=== PATIENT | female | born 2000 | race American Indian/Alaskan Native ===

== ENCOUNTER 2021-09-03 08:19 | Inpatient (IN) | payer OTHER ==
[2021-09-03] MEDS ORDERED: LACTATED RINGERS 1,000 ML ONE (10:04)
[2021-09-03] MEDS ORDERED: LACTATED RINGERS 1,000 ML IV SCH (12:00)
[2021-09-03] MEDS ORDERED: LIDOCAINE (2%) 20 MG/1 ML VIAL 20 ML MDV INFILTRATI SCH (12:00)
[2021-09-03] MEDS ORDERED: ePHEDrine SULFATE 50 MG/1 ML INJ IV PRN ×2 (12:18→13:00)
--- NOTE | 2021-09-03 12:18 | History and Physical Report ---
History of Present Illness Date of examination: 09/03/21 Date of admission: 09/03/21 Chief complaint: SROM at 38+3 wks gestation. History of present illness: . JANKI 09/14/2021. Past History Past Medical History: no pertinent history - Obstetrical History Expected Date of Delivery: 09/14/21 Actual Gestation: 38 Week(s) 3 Day(s) : 2 Para: 0 Medications and Allergies Allergies Allergy/AdvReac Type Severity Reaction Status Date / Time No Known Allergies Allergy Unverified 09/03/21 11:51 Home Medications Medication Instructions Recorded Confirmed Last Taken Type No Known Home Medications [No 09/03/21 09/03/21 Unknown History Reported Home Medications] Review of Systems All systems: negative Genitourinary: leakage of fluid, contractions - Vital Signs Vital signs: Vital Signs Pulse BP Pulse Ox 75 96/62 99 09/03/21 08:57 09/03/21 08:57 09/03/21 08:57 Temp Pulse Resp BP Pulse Ox 91 H 121/76 99 09/03/21 12:06 09/03/21 11:56 09/03/21 12:06 - Physical Exam Lungs: Positive: Normal air movement Abdomen: Positive: normal appearance, distention Genitourinary (Female): Positive: normal external genitalia, normal perenium Vagina: Positive: normal moisture Cervix: Negative: lesion, discharge Uterus: Positive: enlarged, normal contour Extremities: Positive: normal Deep Tendon Reflex Grade: Normal +2 - Obstetrical FHR: auscultation normal Uterine Contraction Monitor Mode: External Cervical Dilatation: 6 Cervical Effacement Percentage: 100 station: 0+2 Uterine Contraction Pattern: Regular Uterine Contraction Intensity: Strong/Firm Results All other labs normal. Assessment and Plan - Patient Problems (1) 38 weeks gestation of Current Visit: Yes Status: Acute (2) SROM (spontaneous rupture of membranes) Current Visit: Yes Status: Acute (3) Active labor at term Current Visit: Yes Status: Acute Plan to address problem: Vaginal delivery expected.
[2021-09-03] MEDS ORDERED: TERBUTALINE 1 MG/1 ML INJ SUB-Q PRN (12:30)
[2021-09-03] MEDS ORDERED: LOPERAMIDE 2 MG CAP PO PRN (12:30)
[2021-09-03 13:00] LABS: Hematocrit 31.9 % (30.3-42.9); Hemoglobin 10.1 gm/dl (10.1-14.3); Mean Corpuscular HGB Conc 32 % (30-34); Mean Corpuscular Volume 86 fl (79-97); Platelet Count 321 K/mm3 (140-440); Red Blood Count 3.73 M/mm3 (3.65-5.03)
[2021-09-03] MEDS ORDERED: OXYTOCIN 10 UNIT/1 ML INJ IM PRN (13:00)
[2021-09-03] MEDS ORDERED: AMPICILLIN/NS 2 GM/100 ML 2 GM/100 ML BAG IV SCH (13:00)
[2021-09-03] MEDS ORDERED: CARBOPROST TROMETHAMINE 250 MCG/1 ML INJ IM PRN (13:00)
[2021-09-03] MEDS ORDERED: fentaNYL-BUPIV 2 MCG/ML-0.125% 200 MCG/100 ML BAG EPIDURAL SCH (13:00)
[2021-09-03] MEDS ORDERED: NALOXONE 0.4 MG/1 ML INJ IV PRN (13:00)
[2021-09-03] MEDS ORDERED: OXYTOCIN DRIP 30 UNITS/500 ML BAG IV SCH ×2 (13:00→15:00)
[2021-09-03] MEDS ORDERED: MINERAL OIL 30 ML ORAL LIQD PO PRN (13:00)
[2021-09-03] MEDS ORDERED: METHYLERGONOVINE MALEATE 0.2 MG/ML VIAL IM PRN (13:00)
[2021-09-03] MEDS ORDERED: miSOPROStol 200 MCG TAB PR PRN (13:00)
[2021-09-03] MEDS ORDERED: fentaNYL 100 MCG/2 ML INJ IV SCH (13:00)
[2021-09-03] MEDS ORDERED: PROMETHAZINE 25 MG RECT SUPP PR PRN (14:34)
[2021-09-03] MEDS ORDERED: KETOROLAC 30 MG/1 ML INJ IV PRN (14:34)
[2021-09-03] MEDS ORDERED: ONDANSETRON 4 MG/2 ML INJ IV PRN (14:34)
--- NOTE | 2021-09-03 14:43 | Procedure Note ---
OB Delivery Note - Delivery Date of Delivery: 09/03/21 Surgeon: BARON HARVEY Estimated blood loss: 100cc - Vaginal Delivery presentation: vertex Delivery position: OA Intrapartum events: none Delivery induction: none Delivery monitor: external FHT, external uterine Route of delivery: Delivery placenta: spontaneous Delivery cord: 3 umbilical vessels Episiotomy: none Delivery laceration: none Anesthesia: intravenous - A at 1 minute: 8 at 5 minutes: 9 Gender: Male (5ibs 8oz)
[2021-09-03] MEDS ORDERED: HYDROcodone/ACETAMINOPHEN 5-325 MG TAB PO PRN (15:00)
[2021-09-03] MEDS ORDERED: diphenhydrAMINE 25 MG CAP PO PRN (15:00)
[2021-09-03] MEDS ORDERED: WITCH HAZEL/ GLYCERIN PAD TP PRN (15:00)
[2021-09-03] MEDS ORDERED: LANOLIN/ZINC/DIMETHICONE (LANSINOH) 7 GM TP PRN (15:00)
[2021-09-03] MEDS ORDERED: ACETAMINOPHEN 325 MG TAB PO PRN (15:00)
[2021-09-03] MEDS ORDERED: PROMETHAZINE 25 MG TAB PO PRN (15:00)
[2021-09-03] MEDS ORDERED: AMPICILLIN/NS 1 GM/50 ML 1 GM/50 ML BAG IV SCH (17:00)
[2021-09-03] MEDS ORDERED: MAGNESIUM HYDROXIDE (MOM) ORAL LIQD UDC PO PRN (22:00)
[2021-09-03] MEDS: DOCUSATE SODIUM 100 MG CAP PO SCH (22:49)
[2021-09-03] MEDS: IBUPROFEN 600 MG TAB PO SCH (22:49)
[2021-09-04 05:53] LABS: Hematocrit 30.2 % (30.3-42.9); Hemoglobin 9.6 gm/dl (10.1-14.3)
[2021-09-04] MEDS: IBUPROFEN 600 MG TAB PO SCH ×3 (06:02→18:29)
[2021-09-04] MEDS: DOCUSATE SODIUM 100 MG CAP PO SCH (10:05)
--- NOTE | 2021-09-04 10:07 | Progress Note ---
Assessment and Plan - Patient Problems (1) 38 weeks gestation of Current Visit: Yes Status: Resolved (2) SROM (spontaneous rupture of membranes) Current Visit: Yes Status: Resolved (3) Active labor at term Current Visit: Yes Status: Resolved (4) Status post normal vaginal delivery Current Visit: Yes Status: Acute Plan to address problem: Stable. Subjective - Subjective Date of service: 09/04/21 Principal diagnosis: day 1. Interval history: . JANKI 09/14/2021. 09/04/21 09/03/21. Wants to go home today. Patient reports: appetite normal, voiding normally, pain well controlled, ambulating normally [place]: doing well Objective - Vital Signs Latest vital signs: Vital Signs Temp Pulse Resp BP BP Pulse Ox Pulse Ox 09/04/21 08:23 98.4 F 74 18 96/60 99 09/04/21 06:02 98 09/04/21 03:40 98 09/04/21 02:00 98 09/04/21 00:50 97.8 F 76 18 95/50 99 09/04/21 00:10 98 09/03/21 21:55 98.0 F 69 18 109/53 98 09/03/21 21:40 98 09/03/21 19:50 98 09/03/21 18:39 98.0 F 81 14 114/75 98 09/03/21 17:53 122 H 99 09/03/21 17:48 79 99 09/03/21 17:43 74 99 09/03/21 17:40 90 104/60 09/03/21 17:38 85 98 09/03/21 17:33 79 99 09/03/21 17:28 76 99 09/03/21 17:25 94 H 109/65 09/03/21 17:23 90 98 09/03/21 17:18 68 99 09/03/21 17:13 83 97 09/03/21 17:10 110/64 09/03/21 17:07 84 98 09/03/21 17:02 73 98 09/03/21 16:57 83 99 09/03/21 16:55 80 113/64 09/03/21 16:52 87 98 09/03/21 16:47 80 99 09/03/21 16:42 79 99 07/13/22 16:40 74 113/66 07/13/22 16:37 72 99 09/03/21 16:32 74 98 09/03/21 16:27 83 99 09/03/21 16:25 61 108/58 09/03/21 16:22 66 99 09/03/21 16:17 77 98 09/03/21 16:12 83 99 09/03/21 16:10 60 108/56 09/03/21 16:07 62 100 09/03/21 16:02 77 99 09/03/21 15:57 82 81 L 09/03/21 15:46 69 99 09/03/21 15:41 71 100 09/03/21 15:40 61 112/69 09/03/21 15:36 74 100 09/03/21 15:31 79 100 09/03/21 15:26 63 100 09/03/21 15:25 62 110/63 09/03/21 15:21 66 100 09/03/21 15:16 64 100 09/03/21 15:11 65 100 09/03/21 15:10 76 111/69 09/03/21 15:06 76 100 09/03/21 15:01 67 99 09/03/21 14:56 76 100 09/03/21 14:55 67 109/71 09/03/21 14:51 68 100 09/03/21 14:46 72 100 09/03/21 14:41 71 99 09/03/21 14:40 65 114/70 09/03/21 14:36 90 99 09/03/21 14:31 70 100 09/03/21 14:26 74 100 09/03/21 14:22 73 136/60 88 09/03/21 14:21 87 98 09/03/21 13:16 84 99 09/03/21 13:11 68 99 09/03/21 13:06 93 H 99 09/03/21 13:01 110 H 99 09/03/21 12:56 81 99 09/03/21 12:51 81 98 09/03/21 12:46 97 H 98 09/03/21 12:44 86 102/59 09/03/21 12:41 94 H 98/54 97 09/03/21 12:36 77 100 09/03/21 12:35 77 108/63 09/03/21 12:32 85 109/61 07/13/22 12:31 98 H 98 09/03/21 12:29 110 H 106/67 09/03/21 12:26 94 H 100 09/03/21 12:21 89 98 09/03/21 12:16 87 98 09/03/21 12:11 79 99 09/03/21 12:06 91 H 99 09/03/21 12:01 90 100 09/03/21 11:56 76 121/76 100 09/03/21 11:51 75 100 09/03/21 11:46 93 H 100 09/03/21 11:41 80 98 09/03/21 11:36 78 99 09/03/21 11:31 81 98 09/03/21 11:26 90 110/76 99 09/03/21 11:21 87 100 09/03/21 11:16 81 100 09/03/21 11:11 79 100 09/03/21 11:06 88 100 09/03/21 11:01 122 H 99 09/03/21 10:56 76 110/79 99 09/03/21 10:51 89 100 09/03/21 10:46 92 H 100 09/03/21 10:41 87 99 09/03/21 10:36 81 99 09/03/21 10:31 84 100 09/03/21 10:30 97.9 F 100 09/03/21 10:20 101 H 97 09/03/21 10:15 64 99 09/03/21 10:10 69 99 Intake and Output 09/03/21 09/04/21 09/04/21 23:59 07:59 15:59 Intake Total 240 360 120 Output Total 700 Balance 240 -340 120 Intake: Oral 240 360 120 Output: Urine 700 Void 700 Other: Total, Intake Amount 240 240 120 Total, Output Amount 300 # Voids Void 1 1 1 - Exam Lungs: Present: Normal air movement Abdomen: Present: normal appearance, soft, normal bowel sounds Extremities: Present: normal Deep Tendon Reflex Grade: Normal +2 - Labs Labs: Abnormal lab results 09/03/21 09/04/21 Range/Units 09:45 04:01 WBC 13.9 H (4.5-11.0) K/mm3 Hgb 9.6 L (10.1-14.3) gm/dl Hct 30.2 L (30.3-42.9) % MCH 27 L (28-32) pg
--- NOTE | 2021-09-04 10:10 | Discharge Summary ---
Providers - Providers Date of Admission: 09/03/21 14:35 Date of discharge: 09/04/21 Attending physician: BARON HARVEY MD Primary care physician: BARON HARVEY MD Hospitalization Reason for admission: active labor, rupture of membranes, IUP at term Delivery: Episiotomy: none Laceration: none Other procedures: none complications: none Discharge diagnosis: IUP at term delivered [place] baby: male Condition at discharge: Good Disposition: 01 HOME / SELF CARE / HOMELESS - Discharge Diagnoses (1) 38 weeks gestation of Status: Resolved (2) SROM (spontaneous rupture of membranes) Status: Resolved (3) Active labor at term Status: Resolved (4) Status post normal vaginal delivery Status: Acute Plan - Provider Discharge Summary Activity: routine, no sex for 6 weeks, no heavy lifting 4 weeks, no strenuous exercise Diet: routine Instructions: routine Additional instructions: [] Smoking cessation referral if applicable(refer to patient education folder for contact #) [] Refer to [facility]'s [facility] Booklet Call your doctor immediately for: * Fever > 100.5 * Heavy vaginal bleeding ( >1 pad per hour) * Severe persistent headache * Shortness of breath * Reddened, hot, painful area to leg or breast * Drainage or odor from incision. * Keep incision clean and dry at all times and follow doctor's instructions regarding bathing/showering - Follow up plan Follow up: BARON HARVEY MD [Primary Care Provider] - 7 Days
[2021-09-04 17:37] VITALS: BP 100/59
== END 2021-09-04 18:44 | disposition home or self-care (01) | DRG 775 ==
LOC: TRG 08:19 → LD 08:21 → TRG 14:51 → OB 18:08
PROVIDERS: ADMIT Obstetrics & Gynecology; ATTEND Obstetrics & Gynecology
PROC: 10E0XZZ Delivery of Products of Conception, External Approach (ICD-10-PCS; principal; 2021-09-03)
DX: O80 Encounter for full-term uncomplicated delivery (principal); Z3A.39 39 weeks gestation of pregnancy; Z20.822 Contact with and (suspected) exposure to COVID-19; Z37.0 Single live birth
CPT/HCPCS: 36415; 85014; 85018; 85027; 86850; 86900; 86901; G0378; J0290; U0003